=== PATIENT | female | born 1960 | race Caucasian/White ===

== ENCOUNTER 2017-12-20 07:34 | Outpatient (CLI) | payer OTHER ==
[2017-12-20 08:46] LABS: HEMOGLOBIN A1C 10.1 % (4.5-6.2)
[2017-12-20 08:55] LABS: ALANINE AMINOTRANSFERASE 34 U/L (12-78); ALBUMIN 3.9 G/DL (3.4-5.0); ALKALINE PHOSPHATASE 144 IU/L (46-116); ANION GAP 14 (8-16); ASPARTATE AMINO TRANSFERASE 14 U/L (10-37); BILIRUBIN,TOTAL 0.3 MG/DL (0.1-1.0); BLOOD UREA NITROGEN 19 MG/DL (7-18); BUN/CREATININE RATIO 25.3 (6.6-38.0); CALCIUM 9.3 MG/DL (8.5-10.1); CHLORIDE 104 MMOL/L (99-107); CREATININE 0.75 MG/DL (0.40-0.90); GLUCOSE 289 MG/DL (70-104); POTASSIUM 4.2 MMOL/L (3.5-5.1); SODIUM 142 MMOL/L (135-145); TOTAL CARBON DIOXIDE 24.5 MMOL/L (24-32); eGFR 80 ML/MIN
== END 2017-12-20 23:59 | disposition home or self-care (01) ==
LOC: LAB 07:34
PROVIDERS: ATTEND Nurse Practitioner Family
DX: E11.65 Type 2 diabetes mellitus with hyperglycemia (principal); I10 Essential (primary) hypertension; E78.4 Other hyperlipidemia
CPT/HCPCS: 36415; 80053; 83036

== ENCOUNTER 2018-06-13 07:54 | Outpatient (CLI) | payer OTHER ==
[2018-06-13 08:34] LABS: HEMOGLOBIN A1C 10.5 % (4.5-6.2)
[2018-06-13 08:35] LABS: ALANINE AMINOTRANSFERASE 27 U/L (12-78); ALBUMIN 3.9 G/DL (3.4-5.0); ALBUMIN/GLOBULIN RATIO 1.1 (1.1-1.5); ALKALINE PHOSPHATASE 114 IU/L (46-116); ANION GAP 7 (8-16); ASPARTATE AMINO TRANSFERASE 12 U/L (10-37); BILIRUBIN,TOTAL 0.4 MG/DL (0.1-1.0); BLOOD UREA NITROGEN 14 MG/DL (7-18); BUN/CREATININE RATIO 18.7 (6.6-38.0); CALCIUM 8.7 MG/DL (8.5-10.1); CHLORIDE 103 MMOL/L (99-107); CHOL/HDL RATIO 3.4 (0.00-4.99); CHOLESTEROL 189 MG/DL (0-200); CREATININE 0.75 MG/DL (0.40-0.90); GLUCOSE 233 MG/DL (70-104); HDL CHOLESTEROL 55 MG/DL (35-60); LDL CHOLESTEROL 107 MG/DL (50-100); POTASSIUM 4.1 MMOL/L (3.5-5.1); SODIUM 139 MMOL/L (135-145); TOTAL CARBON DIOXIDE 29.1 MMOL/L (24-32); TOTAL PROTEIN 7.5 G/DL (6.4-8.2); TRIGLYCERIDES 202 MG/DL (20-135); eGFR 79 ML/MIN
== END 2018-06-13 23:59 | disposition home or self-care (01) ==
LOC: LAB 07:54
PROVIDERS: ATTEND Nurse Practitioner Family
DX: E11.9 Type 2 diabetes mellitus without complications (principal); E78.5 Hyperlipidemia, unspecified; F41.8 Other specified anxiety disorders
CPT/HCPCS: 36415; 80053; 80061; 82043; 82570; 83036

== ENCOUNTER 2018-10-09 08:39 | Outpatient (CLI) | payer OTHER ==
[2018-10-09 09:48] LABS: HEMOGLOBIN A1C 8.4 % (4.5-6.2)
[2018-10-09 10:00] LABS: ALANINE AMINOTRANSFERASE 46 U/L (12-78); ALBUMIN 3.9 G/DL (3.4-5.0); ALKALINE PHOSPHATASE 145 IU/L (46-116); ANION GAP 12 (8-16); ASPARTATE AMINO TRANSFERASE 20 U/L (10-37); BILIRUBIN,TOTAL 0.4 MG/DL (0.1-1.0); BLOOD UREA NITROGEN 19 MG/DL (7-18); BUN/CREATININE RATIO 30.2 (6.6-38.0); CALCIUM 8.9 MG/DL (8.5-10.1); CHLORIDE 102 MMOL/L (99-107); CHOL/HDL RATIO 2.9 (0.00-4.99); CHOLESTEROL 158 MG/DL (0-200); CREATININE 0.63 MG/DL (0.40-0.90); GLUCOSE 204 MG/DL (70-104); HDL CHOLESTEROL 54 MG/DL (35-60); LDL CHOLESTEROL 88 MG/DL (50-100); SODIUM 140 MMOL/L (135-145); TOTAL CARBON DIOXIDE 25.7 MMOL/L (24-32); TOTAL PROTEIN 7.9 G/DL (6.4-8.2); TRIGLYCERIDES 91 MG/DL (20-135); eGFR > 90 ML/MIN
[2018-10-10 14:05] LABS: C-PEPTIDE, SERUM 2.6 ng/mL (1.1-4.4); INSULIN 11.1 uIU/mL (2.6-24.9)
== END 2018-10-09 23:59 | disposition home or self-care (01) ==
LOC: LAB 08:39
PROVIDERS: ATTEND Nurse Practitioner Family
DX: E11.65 Type 2 diabetes mellitus with hyperglycemia (principal); I10 Essential (primary) hypertension; E78.00 Pure hypercholesterolemia, unspecified
CPT/HCPCS: 36415; 80053; 80061; 83036; 83525; 84443; 84681

== ENCOUNTER 2018-12-18 09:19 | Outpatient (CLI) | payer OTHER ==
[2018-12-18 10:15] LABS: HEMOGLOBIN A1C 9.5 % (4.5-6.2)
[2018-12-19 09:07] LABS: THIIODOTHRONINE, FREE, SERUM 2.1 pg/mL (2.0-4.4); THYROID PEROXIDASE AB 15 IU/mL (0-34)
== END 2018-12-18 23:59 | disposition home or self-care (01) ==
LOC: LAB 09:19
PROVIDERS: ATTEND Nurse Practitioner Family
DX: E11.65 Type 2 diabetes mellitus with hyperglycemia (principal); E03.9 Hypothyroidism, unspecified
CPT/HCPCS: 36415; 83036; 84439; 84443; 84479; 84481; 86376

== ENCOUNTER 2019-09-30 09:18 | Emergency (ER) | payer OTHER ==
[~2019-09-30] VITALS: Ht 154.9 cm; Wt 66.4 kg
[2019-09-30 09:29] VITALS: BP 117/88
[2019-09-30] MEDS ORDERED: AMOX-580 PO (09:55)
[2019-09-30] MEDS ORDERED: IBUP-1984 PO (09:55)
== END 2019-09-30 10:06 | disposition home or self-care (01) ==
LOC: ER 09:19
DX: J32.9 Chronic sinusitis, unspecified (principal); H66.91 Otitis media, unspecified, right ear; Z79.899 Other long term (current) drug therapy
CPT/HCPCS: 99283

== ENCOUNTER 2019-10-22 08:52 | Outpatient (CLI) | payer OTHER ==
[2019-10-22 09:28] LABS: BASOPHILS # (AUTO) 0.1 X10'3 (0-0.2); EOSINOPHILS # (AUTO) 0.2 X10'3 (0-0.9); EOSINOPHILS % (AUTO) 4.2 % (0-6); HEMATOCRIT 41.3 % (35.0-45.0); LYMPHOCYTES # (AUTO) 1.6 X10'3 (1.1-4.8); MEAN CORPUSCULAR HEMOGLOBIN 31.7 PG (27.0-31.0); MEAN CORPUSCULAR VOLUME 93.2 FL (78-98); MEAN PLATELET VOLUME 8.6 FL (7.4-10.4); MONOCYTES # (AUTO) 0.4 X10'3 (0-0.9); MONOCYTES % (AUTO) 7.2 % (2-12); NEUTROPHILS # (AUTO) 3.3 X10'3 (1.8-7.7); NEUTROPHILS % (AUTO) 59.6 % (42-75); PLATELET COUNT 185 X10'3 (140-440); RED BLOOD COUNT 4.43 X10'6 (4.20-5.60); RED CELL DISTRIBUTION WIDTH 13.3 % (11.5-14.5); WHITE BLOOD COUNT 5.5 X10'3 (4.5-11.0)
[2019-10-22 10:51] LABS: ALANINE AMINOTRANSFERASE 33 U/L (12-78); ALBUMIN 3.8 G/DL (3.4-5.0); ALBUMIN/GLOBULIN RATIO 1.1 (1.1-1.5); ALKALINE PHOSPHATASE 120 IU/L (46-116); ANION GAP 8 (8-16); ASPARTATE AMINO TRANSFERASE 13 U/L (10-37); BILIRUBIN,TOTAL 0.4 MG/DL (0.1-1.0); BLOOD UREA NITROGEN 18 MG/DL (7-18); BUN/CREATININE RATIO 26.5 (6.6-38.0); CALCIUM 8.7 MG/DL (8.5-10.1); CHLORIDE 105 MMOL/L (99-107); CHOL/HDL RATIO 4.1 (0.00-4.99); CHOLESTEROL 202 MG/DL (0-200); CREATININE 0.68 MG/DL (0.40-0.90); GLUCOSE 255 MG/DL (70-104); HDL CHOLESTEROL 49 MG/DL (35-60); LDL CHOLESTEROL 125 MG/DL (50-100); POTASSIUM 4.4 MMOL/L (3.5-5.1); SODIUM 141 MMOL/L (135-145); TOTAL CARBON DIOXIDE 28.4 MMOL/L (24-32); TOTAL PROTEIN 7.4 G/DL (6.4-8.2); TRIGLYCERIDES 132 MG/DL (20-135); eGFR 89 ML/MIN
[2019-10-24 13:29] LABS: MICROALB/CRT, RATIO <8 mg/g creat (0-29)
== END 2019-10-22 23:59 | disposition home or self-care (01) ==
LOC: LAB 08:52
PROVIDERS: ATTEND Nurse Practitioner Family
DX: E11.9 Type 2 diabetes mellitus without complications (principal); E03.9 Hypothyroidism, unspecified; E78.5 Hyperlipidemia, unspecified
CPT/HCPCS: 36415; 80053; 80061; 82043; 82570; 84443; 85025

== ENCOUNTER 2021-03-18 17:35 | Inpatient (IN) | payer BC, OTHER ==
[~2021-03-18] VITALS: Ht 154.9 cm; Wt 63.1 kg
[2021-03-18 19:04] LABS: ALANINE AMINOTRANSFERASE 23 U/L (12-78); ALBUMIN 3.8 G/DL (3.4-5.0); ALBUMIN/GLOBULIN RATIO 0.8 (1.1-1.5); ALKALINE PHOSPHATASE 120 IU/L (46-116); ANION GAP 28 (8-16); ASPARTATE AMINO TRANSFERASE 12 U/L (10-37); BILIRUBIN,TOTAL 0.6 MG/DL (0.1-1.0); BLOOD UREA NITROGEN 30 MG/DL (7-18); BUN/CREATININE RATIO 17.5 (6.6-38.0); CALCIUM 8.7 MG/DL (8.5-10.1); CHLORIDE 92 MMOL/L (99-107); CREATININE 1.71 MG/DL (0.40-0.90); POTASSIUM 4.9 MMOL/L (3.5-5.1); SODIUM 131 MMOL/L (135-145); TOTAL PROTEIN 8.6 G/DL (6.4-8.2); eGFR 30 ML/MIN
[2021-03-18 19:05] LABS: BASOPHILS % (AUTO) 0.3 % (0-1); EOSINOPHILS % (AUTO) 0.1 % (0-6); HEMATOCRIT 47.9 % (35.0-45.0); HEMOGLOBIN 15.5 g/dl (12.0-16.0); LYMPHOCYTES # (AUTO) 1.4 X10'3 (1.1-4.8); LYMPHOCYTES % (AUTO) 19.9 % (21-51); MEAN CORPUSCULAR HEMOGLOBIN 32.4 PG (27.0-31.0); MEAN CORPUSCULAR HGB CONC 32.4 g/dL (33.0-36.5); MEAN CORPUSCULAR VOLUME 99.8 FL (78-98); MEAN PLATELET VOLUME 8.2 FL (7.4-10.4); MONOCYTES # (AUTO) 0.6 X10'3 (0-0.9); MONOCYTES % (AUTO) 8.8 % (2-12); NEUTROPHILS # (AUTO) 5.1 X10'3 (1.8-7.7); NEUTROPHILS % (AUTO) 70.9 % (42-75); PLATELET COUNT 259 X10'3 (140-440); RED CELL DISTRIBUTION WIDTH 13.6 % (11.5-14.5); WHITE BLOOD COUNT 7.1 X10'3 (4.5-11.0)
[2021-03-18 19:11] LABS: GLUCOSE 603 MG/DL (70-104); TOTAL CARBON DIOXIDE 10.8 MMOL/L (24-32)
[2021-03-18] MEDS ORDERED: normal saline 1000ml 1,000 ML IV ONE (19:20)
[2021-03-18] MEDS ORDERED: potassium Cl 40MEQ/1/2NS 520ml 520 ML IV PRN ×6 (19:30→20:30)
[2021-03-18] MEDS ORDERED: potassium Cl 20 mEq SR tablet PO PRN ×5 (19:30→20:30)
[2021-03-18] MEDS ORDERED: potassium CL 20mEq in D5-1/2NS 1,000 ML IV PRN ×2 (19:30→20:30)
[2021-03-18] MEDS ORDERED: insulin regular, human U-100 3ml vial - multi-dose IV PRN ×2 (19:30→20:30)
[2021-03-18] MEDS ORDERED: normal saline 1000ml 1,000 ML IV SCH (19:30)
[2021-03-18] MEDS ORDERED: sodium phosphate inj. 30 MMOL in dextrose 5%-water 250 ML IV PRN (19:30)
[2021-03-18] MEDS ORDERED: sodium phosphate inj. 15 MMOL in dextrose 5%-water 250 ML IV PRN (19:30)
[2021-03-18] MEDS ORDERED: Neutra Phos packet PO PRN (19:30)
[2021-03-18 19:49] LABS: PHOSPHORUS 4.1 MG/DL (2.3-4.5)
[2021-03-18 19:59] LABS: ABG BASE EXCESS -19.8 mmol/L (-2.0-2.0); ABG HCO3 6.4 mmol/L (22.0-26.0); ABG OXYGEN SATURATION 97.4 % (94-97); ABG PCO2 (T) 17.6 mmHg (32.0-45.0); ABG PO2 (T) 103.9 mmHg (75.0-100.0); ALLEN'S TEST POSITIVE; FCOHb 0.4 % (0.0-3.9); FMetHb 0.4 % (0.0-1.5); FO2Hb 96.6 % (94-97); PATIENT TEMPERATURE 36.5; RESPIRATORY RATE 16 b/min; TOTAL HEMOGLOBIN 15.2 G/dl (12.0-16.0)
[2021-03-18] MEDS: K and/or MAG REPLACEMENT MC SCH (20:00)
[2021-03-18] MEDS: Insulin Reg/NS 100units/100mL 100 ML IV SCH (20:06)
[2021-03-18 20:14] LABS: CLARITY,URINE SLIGHTLY CLOUDY (Clear); COLOR,URINE YELLOW (Yellow); GLUCOSE, URINE 500 mg/dl (Neg); KETONES,URINE >=80 mg/dl (Neg); LEUKOCYTE ESTERASE ,URINE NEGATIVE (Neg); NITRITES, URINE NEGATIVE (Neg); OCCULT BLOOD,URINE NEGATIVE (Neg); PH,URINE 5.5 (4.8-8.0); PROTEIN,URINE TRACE mg/dl (Neg); UROBILINOGEN,URINE 0.2 E.U/dL (0.2-1.0)
[2021-03-18] MEDS ORDERED: ondansetron/PF 4mg/2ml inj IV ONE (20:15)
[2021-03-18] MEDS ORDERED: acetaminophen 325mg tablet PO ONE (20:15)
[2021-03-18 20:22] LABS: UA COLLECTION TYPE CLN CATCH MIDSTREAM
[2021-03-18 20:24] LABS: BACTERIA,URINE NONE SEEN /HPF (Neg); MUCUS STRANDS NONE SEEN /LPF (Neg); RBC,URINE NONE SEEN /HPF (0-2); SQUAMOUS EPITHELIAL CELL,UR FEW /LPF (FEW); WBC,URINE 0-4 /HPF (0-4)
[2021-03-18 20:25] LABS: YEAST MANY /HPF (NEGATIVE)
[2021-03-18] MEDS ORDERED: Insulin Reg/NS 100units/100mL 100 ML IV SCH (20:30)
[2021-03-18] MEDS: normal saline 1000ml 1,000 ML IV SCH ×3 (20:30→22:04)
[2021-03-18] MEDS ORDERED: acetaminophen 325mg tablet PO PRN ×2 (20:30)
[2021-03-18] MEDS ORDERED: sodium bicarbonate (8.4%) inj. 100 MEQ in dextrose 5% water 500ml 500 ML IV PRN (20:30)
[2021-03-18] MEDS ORDERED: ondansetron/PF 4mg/2ml inj IV PRN (20:30)
[2021-03-18] MEDS ORDERED: HYDROcodone/acetaminophen 5mg/325mg tablet PO PRN (20:30)
[2021-03-18] MEDS ORDERED: magnesium Cl slow-release 64mg tablet PO PRN (20:30)
[2021-03-18] MEDS ORDERED: magnesium 4gm in 100ml NS 100 ML IV PRN (20:30)
[2021-03-18] MEDS ORDERED: sodium bicarbonate (8.4%) inj. 50 MEQ in dextrose 5% water 500ml 250 ML IV PRN (20:30)
[2021-03-18] MEDS ORDERED: mag hydrox/Alum hydrox/simeth 30ml oral suspension PO PRN (20:30)
[2021-03-18] MEDS ORDERED: magnesium hydroxide 30ml (MOM) UD suspension PO PRN (20:30)
[2021-03-18] MEDS ORDERED: magnesium 2GM in 50ml NS 50 ML IV PRN (20:30)
[2021-03-18] MEDS ORDERED: morphine 2 MG/ML inj. syringe IV PRN (20:30)
[2021-03-18] MEDS ORDERED: temazepam 15mg capsule PO PRN (21:00)
[2021-03-18 22:54] LABS: ANION GAP 22 (8-16); BLOOD UREA NITROGEN 27 MG/DL (7-18); BUN/CREATININE RATIO 19.7 (6.6-38.0); CALCIUM 7.7 MG/DL (8.5-10.1); CHLORIDE 101 MMOL/L (99-107); CREATININE 1.37 MG/DL (0.40-0.90); GLUCOSE 341 MG/DL (70-104); POTASSIUM 3.9 MMOL/L (3.5-5.1); SODIUM 136 MMOL/L (135-145); eGFR 39 ML/MIN
[2021-03-18 23:00] LABS: TOTAL CARBON DIOXIDE 13.3 MMOL/L (24-32)
--- NOTE | 2021-03-18 23:23 | NUR ---
Blood glucose 246 and K 3.9. D2 1/2NS 20K @150 ml/hr started
[2021-03-19] MEDS: normal saline 1000ml 1,000 ML IV SCH ×2 (00:30→04:30)
--- NOTE | 2021-03-19 00:42 | NUR ---
Pt has not produced urine since arriving at the ER. notified. No new orders.
--- NOTE | 2021-03-19 00:43 | NUR ---
Patient placed in hospital bed for comfort. Call light within reach
[2021-03-19 01:03] LABS: ALBUMIN 2.6 G/DL (3.4-5.0); ANION GAP 17 (8-16); BLOOD UREA NITROGEN 22 MG/DL (7-18); BUN/CREATININE RATIO 18.2 (6.6-38.0); CALCIUM 6.8 MG/DL (8.5-10.1); CHLORIDE 108 MMOL/L (99-107); CREATININE 1.21 MG/DL (0.40-0.90); GLUCOSE 222 MG/DL (70-104); POTASSIUM 3.5 MMOL/L (3.5-5.1); SODIUM 140 MMOL/L (135-145); TOTAL CARBON DIOXIDE 15.3 MMOL/L (24-32); eGFR 45 ML/MIN
[2021-03-19 01:07] LABS: PHOSPHORUS 1.1 MG/DL (2.3-4.5)
--- NOTE | 2021-03-19 01:13 | NUR ---
Pt Phos 1.1. MD notified. Replace Phos per protocol
[2021-03-19 03:40] LABS: ALBUMIN 2.5 G/DL (3.4-5.0); ANION GAP 13 (8-16); BLOOD UREA NITROGEN 18 MG/DL (7-18); BUN/CREATININE RATIO 15.5 (6.6-38.0); CHLORIDE 109 MMOL/L (99-107); CHOL/HDL RATIO 5.2 (0.00-4.99); CHOLESTEROL 228 MG/DL (0-200); CREATININE 1.16 MG/DL (0.40-0.90); GLUCOSE 126 MG/DL (70-104); HDL CHOLESTEROL 44 MG/DL (35-60); LDL CHOLESTEROL 142 MG/DL (50-100); MAGNESIUM 1.5 MG/DL (1.5-2.4); POTASSIUM 3.4 MMOL/L (3.5-5.1); SODIUM 141 MMOL/L (135-145); TRIGLYCERIDES 176 MG/DL (20-135); eGFR 47 ML/MIN
--- NOTE | 2021-03-19 04:02 | NUR ---
Patient phosphorous 1.0 after replacement x 1. paged
--- NOTE | 2021-03-19 05:08 | NUR ---
MD notified of pt phos levels, blood glucose and Dextrose rate. MD stated she will review patient labs, and to hold off feeding patient.
--- NOTE | 2021-03-19 05:20 | NUR ---
Pt continues to state that she does not have to urinate. Bladder scanner reads >755ml. Pt assisted to the bedside commode. 650 ml out
--- NOTE | 2021-03-19 05:21 | NUR ---
Insulin decreased from 10 units/hr to 5 units/hr. BG 88, w/ D5 1/2NS + 20K at 250 ml/hr.
[2021-03-19] MEDS ORDERED: ATOR40TA72 PO (05:58)
[2021-03-19] MEDS ORDERED: LEVO25TA7 PO (05:58)
[2021-03-19] MEDS ORDERED: GLIM4TAB7 PO (05:58)
[2021-03-19] MEDS ORDERED: METF-900 PO ×2 (05:58→05:59)
[2021-03-19] MEDS ORDERED: LOSA25TA41 PO (05:58)
[2021-03-19] MEDS ORDERED: FLUO-1 PO (05:58)
[2021-03-19] MEDS: dextrose 5%-1/2 normal saline 1,000 ML IV SCH ×2 (06:43→10:25)
--- NOTE | 2021-03-19 07:01 | NUR ---
pt insulin infusing at 5 units/hr ,switched d5 1/2 n.s with k+ to d5 with 1/[address] amaral at 200 ml/hr.
--- NOTE | 2021-03-19 07:36 | NUR ---
paged dr perez 10 mins ago by greta galvan .will wait few mins and page again.
[2021-03-19 07:42] LABS: ALANINE AMINOTRANSFERASE 20 U/L (12-78); ALBUMIN 2.6 G/DL (3.4-5.0); ALBUMIN/GLOBULIN RATIO 0.8 (1.1-1.5); ALKALINE PHOSPHATASE 72 IU/L (46-116); ANION GAP 10 (8-16); ASPARTATE AMINO TRANSFERASE 10 U/L (10-37); BILIRUBIN,TOTAL 0.2 MG/DL (0.1-1.0); BLOOD UREA NITROGEN 15 MG/DL (7-18); BUN/CREATININE RATIO 12.5 (6.6-38.0); CALCIUM 6.9 MG/DL (8.5-10.1); CHLORIDE 109 MMOL/L (99-107); GLUCOSE 109 MG/DL (70-104); POTASSIUM 3.4 MMOL/L (3.5-5.1); SODIUM 141 MMOL/L (135-145); TOTAL CARBON DIOXIDE 21.6 MMOL/L (24-32); TOTAL PROTEIN 5.9 G/DL (6.4-8.2); eGFR 46 ML/MIN
[2021-03-19 07:45] LABS: PHOSPHORUS 1.4 MG/DL (2.3-4.5)
[2021-03-19] MEDS ORDERED: dextrose ORAL solution 15 GM/59 ML bottle PO PRN ×2 (07:45)
[2021-03-19] MEDS ORDERED: MESSAGE TO PHARMACY PO ONE (07:45)
[2021-03-19] MEDS ORDERED: glucagon, human recombinant 1mg kit SUBCUT PRN (07:45)
[2021-03-19] MEDS ORDERED: dextrose 50%-water 50ml dispensing syringe IV PRN ×2 (07:45)
--- NOTE | 2021-03-19 07:45 | NUR ---
spoke to dr perez regarding pt labs ,phosph,blood sugar ,as per md follow hyperglycemia protocol d/c insulin infusion onces pt start eating 1 hour after that ,replace phosphorus .order carb control diet for the pt.
[2021-03-19 07:47] LABS: ABG BASE EXCESS -6.1 mmol/L (-2.0-2.0); ABG HCO3 17.9 mmol/L (22.0-26.0); ABG OXYGEN SATURATION 96.8 % (94-97); ABG PCO2 (T) 30.6 mmHg (32.0-45.0); ABG PO2 (T) 88.9 mmHg (75.0-100.0); ALLEN'S TEST POSITIVE; FCOHb 0.1 % (0.0-3.9); FMetHb 0.1 % (0.0-1.5); FO2Hb 96.6 % (94-97); TOTAL HEMOGLOBIN 11.9 G/dl (12.0-16.0)
[2021-03-19] MEDS: K and/or MAG REPLACEMENT MC SCH ×3 (08:00→20:57)
[2021-03-19] MEDS ORDERED: K and/or MAG REPLACEMENT MC SCH (08:00)
[2021-03-19] MEDS: atorvastatin 20mg tablet PO SCH (08:23)
[2021-03-19] MEDS: levoTHYROXINE 25mcg tablet PO SCH (08:23)
[2021-03-19] MEDS: Neutra Phos packet PO SCH ×3 (08:24→20:06)
[2021-03-19] MEDS: heparin, porcine 5000 units/ml vial SQ SCH ×2 (08:24→19:21)
[2021-03-19] MEDS: FLUoxetine 20mg capsule PO SCH (08:24)
[2021-03-19] MEDS: losartan 25mg tablet PO SCH (09:04)
[2021-03-19] MEDS: insulin Lispro (HumaLOG) vial - multi-dose SQ SCH ×3 (09:52→21:22)
[2021-03-19] MEDS: Insulin Reg/NS 100units/100mL 100 ML IV SCH (10:07)
--- NOTE | 2021-03-19 12:48 | NUR ---
dr perez at bedside order for kcl 20 with 1/2 n.s for k+3.4 .dka protocol cancelled earlier after pt started eating .
--- NOTE | 2021-03-19 13:12 | NUR ---
Patient in room ED 1. I have received report from DALIA Ferreira and had the opportunity to ask questions and awaiting pt's arrival from ED.
[2021-03-19] MEDS: potassium cl 20mEq in 1/2 NS 1,000 ML IV SCH (13:31)
[2021-03-19] MEDS: potassium Cl 20 mEq SR tablet PO PRN ×3 (13:32→21:54)
--- NOTE | 2021-03-19 14:18 | NUR ---
Patient arrived from ED on hospital bed. Alert and oriented x4, BLL, CL within reach, non skid socks on, will continue to round frequently and monitor. 2 RN skin check complete, MRSA swab collected. First set of vitals complete.
[2021-03-19 18:00] VITALS: BP 118/73
--- NOTE | 2021-03-19 18:15 | NUR ---
Patient in room PCU 3019. I have received report from Galina GÓMEZ & Junaid GÓMEZ and had the opportunity to ask questions and assume patient care.
--- NOTE | 2021-03-19 18:23 | NUR ---
Problems reprioritized. Patient report given, questions answered & plan of care reviewed with Jessika GÓMEZ.
--- NOTE | 2021-03-19 18:28 | NUR ---
Problems reprioritized. Patient report given, questions answered & plan of care reviewed with DALIA Freeman/DALIA Lee. Pt sitting up eating dinner independently. No signs of distress noted at change of shift.
[2021-03-19] MEDS ORDERED: ondansetron 4mg rapidly disintigrating tab PO PRN (19:35)
[2021-03-19] MEDS ORDERED: fluconazole-Diflucan 200mg/NS 100 ML IV SCH (20:00)
[2021-03-19] MEDS ORDERED: insulin glargine (Lantus) pen - multi-dose SQ SCH (21:00)
[2021-03-19 22:00] VITALS: BP 114/56
[2021-03-20] MEDS: potassium cl 20mEq in 1/2 NS 1,000 ML IV SCH ×2 (01:27→09:23)
[2021-03-20 02:00] VITALS: BP 112/59
--- NOTE | 2021-03-20 05:11 | NUR ---
[place] documentation: I have reviewed and agree with all interventions, assessments performed and documented by Rosa GÓMEZ. [place] Medication Administration: For this medication-pass time frame, all medication were reviewed, dispensed, administered and documented per hospital policy by Rosa GÓMEZ.
[2021-03-20 06:00] VITALS: BP 132/81
--- NOTE | 2021-03-20 06:10 | NUR ---
Problems reprioritized. Patient report given, questions answered & plan of care reviewed with Galina GÓMEZ & Junaid RN.
--- NOTE | 2021-03-20 06:28 | NUR ---
Patient in room PCU 3019. I have received report from Jessika GÓMEZ and had the opportunity to ask questions and assume patient care.
--- NOTE | 2021-03-20 06:31 | NUR ---
Patient in room PCU 3019. I have received report from Meena RN/Rosa RN and had the opportunity to ask questions and assume patient care.
[2021-03-20 06:55] LABS: MAGNESIUM 1.8 MG/DL (1.5-2.4)
[2021-03-20] MEDS: FLUoxetine 20mg capsule PO SCH (07:51)
[2021-03-20] MEDS: levoTHYROXINE 25mcg tablet PO SCH (07:51)
[2021-03-20] MEDS: atorvastatin 20mg tablet PO SCH (07:51)
[2021-03-20] MEDS: losartan 25mg tablet PO SCH (07:51)
[2021-03-20] MEDS: heparin, porcine 5000 units/ml vial SQ SCH (07:52)
[2021-03-20] MEDS: K and/or MAG REPLACEMENT MC SCH (08:00)
[2021-03-20 09:04] LABS: BASOPHILS % (AUTO) 0.7 % (0-1); HEMOGLOBIN 12.1 g/dl (12.0-16.0); LYMPHOCYTES # (AUTO) 1.8 X10'3 (1.1-4.8); LYMPHOCYTES % (AUTO) 41.1 % (21-51); MEAN CORPUSCULAR HEMOGLOBIN 32.6 PG (27.0-31.0); MEAN CORPUSCULAR HGB CONC 34.5 g/dL (33.0-36.5); MEAN CORPUSCULAR VOLUME 94.5 FL (78-98); MEAN PLATELET VOLUME 8.5 FL (7.4-10.4); MONOCYTES # (AUTO) 0.5 X10'3 (0-0.9); MONOCYTES % (AUTO) 12.7 % (2-12); NEUTROPHILS # (AUTO) 1.9 X10'3 (1.8-7.7); NEUTROPHILS % (AUTO) 44.5 % (42-75); PLATELET COUNT 142 X10'3 (140-440); RED BLOOD COUNT 3.71 X10'6 (4.20-5.60); WHITE BLOOD COUNT 4.3 X10'3 (4.5-11.0)
[2021-03-20 09:12] LABS: ALANINE AMINOTRANSFERASE 17 U/L (12-78); ALBUMIN 2.5 G/DL (3.4-5.0); ALBUMIN/GLOBULIN RATIO 0.8 (1.1-1.5); ALKALINE PHOSPHATASE 81 IU/L (46-116); ANION GAP 13 (8-16); ASPARTATE AMINO TRANSFERASE 22 U/L (10-37); BILIRUBIN,TOTAL 0.5 MG/DL (0.1-1.0); BLOOD UREA NITROGEN 7 MG/DL (7-18); BUN/CREATININE RATIO 9.2 (6.6-38.0); CALCIUM 7.5 MG/DL (8.5-10.1); CHLORIDE 105 MMOL/L (99-107); CREATININE 0.76 MG/DL (0.40-0.90); GLUCOSE 312 MG/DL (70-104); POTASSIUM 4.3 MMOL/L (3.5-5.1); SODIUM 140 MMOL/L (135-145); TOTAL CARBON DIOXIDE 22.1 MMOL/L (24-32); TOTAL PROTEIN 5.6 G/DL (6.4-8.2); eGFR 77 ML/MIN
[2021-03-20] MEDS: Neutra Phos packet PO SCH ×2 (09:19→13:18)
[2021-03-20] MEDS: insulin Lispro (HumaLOG) vial - multi-dose SQ SCH ×2 (09:22→13:26)
[2021-03-20 10:24] LABS: PHOSPHORUS 1.9 MG/DL (2.3-4.5)
[2021-03-20] MEDS ORDERED: INSU100C10 SQ (10:46)
[2021-03-20] MEDS ORDERED: LANTUS SQ (10:46)
[2021-03-20] MEDS ORDERED: FLUC100T8 PO (10:53)
[2021-03-20 11:00] VITALS: BP 112/69
--- NOTE | 2021-03-20 12:49 | NUR ---
Malnutrition/DM Consults: Pt admit DX DKA now resolved; A1C over 14 and hx T2DM per EMR. GLU down to 312 from 603 on admit. Per RN pt pending discharge at this time requesting RD visit for DM ed. Pt seen by RD for thorough written/verbal DM ed w/ RD contact information provided. RD reviewed importance of hydration, protein intake, types of carbs, carb portion sizing, sick day guidelines, and snack options/strategies. Pt reports prior A1C 9 in [address] encouraged pt to contact dietitian's office if further questions/concerns. Pt appears WD/WN during RD visit PO 75% avg first meals meeting needs, has normal strength, and no significant edema noted. Does not meet minimum malnutrition criteria at this time. Will continue to monitor. Addendum: 03/20/21 at [address] Amended: Links added.
--- NOTE | 2021-03-20 13:30 | NUR ---
[place] documentation: I have reviewed and agree with all interventions, assessments performed and documented by DALIA Molina.
--- NOTE | 2021-03-20 13:30 | NUR ---
[place] Medication Administration: For this medication-pass time frame, all medication were reviewed, dispensed, administered and documented per hospital policy by DALIA Molina.
[2021-03-20] MEDS ORDERED: ASPI-611 PO (13:34)
[2021-03-20] MEDS ORDERED: NEUPHOSK PO (13:34)
[2021-03-20] MEDS ORDERED: CALC-723 PO (13:34)
--- NOTE | 2021-03-20 13:45 | NUR ---
Patient is stable for discharge per MD orders. All discharge instructions reviewed with patient and all questions answered. Follow up appointment made with Shari Flores N.P. on March 27 at 2:45pm. New Rx's were sent to [facility] on [facility]. PIV discontinued, cannula intact. ekg monitor tech discontinued. Belongings collected from room and security officers and sent with patient. Patient walked to front of lobby where private vehicle is waiting.
== END 2021-03-20 13:45 | disposition home or self-care (01) | DRG 637 ==
LOC: ER 17:37 → ED HOLD 20:29 → PCU 3S 03-19 14:21
PROVIDERS: ADMIT Internal Medicine; ATTEND Family Medicine
DX: E11.10 Type 2 diabetes mellitus with ketoacidosis without coma (principal); N17.0 Acute kidney failure with tubular necrosis; B37.49 Other urogenital candidiasis; E87.1 Hypo-osmolality and hyponatremia; E78.5 Hyperlipidemia, unspecified; F32.9 Major depressive disorder, single episode, unspecified; Z66 Do not resuscitate; Z79.84 Long term (current) use of oral hypoglycemic drugs; Z79.890 Hormone replacement therapy; Z79.899 Other long term (current) drug therapy
CPT/HCPCS: 36415; 36600; 70450; 71045; 80048; 80053; 80061; 81001; 82803; 82948; 83036; 83735; 83880; 84100; 84145; 84443; 84484; 85018; 85025; 87081; 87088; 99285; G0378; J1450; J1644; J1815; J2405; J3480; J7030

== ENCOUNTER 2021-04-01 07:57 | Outpatient (CLI) | payer BC ==
[~2021-04-01 07:57] MED LIST: ASPI-611 PO; ATOR40TA72 PO; CALC-723 PO; FLUC100T8 PO; FLUO-1 PO; INSU100C10 SQ; LANTUS SQ; LEVO25TA7 PO; LOSA25TA41 PO; METF-900 PO; NEUPHOSK PO
[2021-04-01 08:34] LABS: BASOPHILS # (AUTO) 0.1 X10'3 (0-0.2); BASOPHILS % (AUTO) 1.1 % (0-1); EOSINOPHILS # (AUTO) 0.1 X10'3 (0-0.9); EOSINOPHILS % (AUTO) 3.1 % (0-6); HEMATOCRIT 40.8 % (35.0-45.0); HEMOGLOBIN 13.6 g/dl (12.0-16.0); LYMPHOCYTES # (AUTO) 2.1 X10'3 (1.1-4.8); LYMPHOCYTES % (AUTO) 48.4 % (21-51); MEAN CORPUSCULAR HEMOGLOBIN 32.1 PG (27.0-31.0); MEAN CORPUSCULAR HGB CONC 33.2 g/dL (33.0-36.5); MEAN CORPUSCULAR VOLUME 96.7 FL (78-98); MEAN PLATELET VOLUME 7.8 FL (7.4-10.4); MONOCYTES # (AUTO) 0.4 X10'3 (0-0.9); MONOCYTES % (AUTO) 8.7 % (2-12); NEUTROPHILS # (AUTO) 1.7 X10'3 (1.8-7.7); NEUTROPHILS % (AUTO) 38.7 % (42-75); PLATELET COUNT 271 X10'3 (140-440); RED BLOOD COUNT 4.22 X10'6 (4.20-5.60); RED CELL DISTRIBUTION WIDTH 13.3 % (11.5-14.5); WHITE BLOOD COUNT 4.4 X10'3 (4.5-11.0)
[2021-04-01 08:45] LABS: ALANINE AMINOTRANSFERASE 24 U/L (12-78); ALBUMIN 3.4 G/DL (3.4-5.0); ALBUMIN/GLOBULIN RATIO 0.9 (1.1-1.5); ALKALINE PHOSPHATASE 113 IU/L (46-116); ANION GAP 8 (8-16); ASPARTATE AMINO TRANSFERASE 14 U/L (10-37); BILIRUBIN,TOTAL 0.2 MG/DL (0.1-1.0); BLOOD UREA NITROGEN 22 MG/DL (7-18); BUN/CREATININE RATIO 33.3 (6.6-38.0); CALCIUM 8.6 MG/DL (8.5-10.1); CHLORIDE 103 MMOL/L (99-107); CHOL/HDL RATIO 5.7 (0.00-4.99); CHOLESTEROL 250 MG/DL (0-200); CREATININE 0.66 MG/DL (0.40-0.90); GLUCOSE 251 MG/DL (70-104); HDL CHOLESTEROL 44 MG/DL (35-60); LDL CHOLESTEROL 143 MG/DL (50-100); POTASSIUM 4.5 MMOL/L (3.5-5.1); SODIUM 139 MMOL/L (135-145); TOTAL CARBON DIOXIDE 27.8 MMOL/L (24-32); TOTAL PROTEIN 7.4 G/DL (6.4-8.2); TRIGLYCERIDES 267 MG/DL (20-135); eGFR > 90 ML/MIN
[2021-04-04 11:31] LABS: C-PEPTIDE, SERUM 1.3 ng/mL (1.1-4.4); MICROALB/CRT, RATIO <9 mg/g creat (0-29)
== END 2021-04-01 23:59 | disposition home or self-care (01) ==
LOC: LAB 07:57
PROVIDERS: ATTEND Family Medicine
DX: E11.9 Type 2 diabetes mellitus without complications (principal); E78.5 Hyperlipidemia, unspecified
CPT/HCPCS: 36415; 80053; 80061; 82043; 82570; 84681; 85025

== ENCOUNTER 2021-06-30 08:27 | Outpatient (CLI) | payer BC ==
[~2021-06-30 08:27] MED LIST changes: -ASPI-611 PO; -LANTUS SQ
[2021-06-30 09:10] LABS: EOSINOPHILS # (AUTO) 0.3 X10'3 (0-0.9); EOSINOPHILS % (AUTO) 6.1 % (0-6); HEMATOCRIT 38.1 % (35.0-45.0); HEMOGLOBIN 12.8 g/dl (12.0-16.0); LYMPHOCYTES # (AUTO) 1.7 X10'3 (1.1-4.8); LYMPHOCYTES % (AUTO) 38.3 % (21-51); MEAN CORPUSCULAR HEMOGLOBIN 31.6 PG (27.0-31.0); MEAN CORPUSCULAR HGB CONC 33.5 g/dL (33.0-36.5); MEAN CORPUSCULAR VOLUME 94.1 FL (78-98); MEAN PLATELET VOLUME 7.5 FL (7.4-10.4); MONOCYTES # (AUTO) 0.4 X10'3 (0-0.9); MONOCYTES % (AUTO) 9.9 % (2-12); NEUTROPHILS # (AUTO) 1.9 X10'3 (1.8-7.7); NEUTROPHILS % (AUTO) 44.7 % (42-75); PLATELET COUNT 244 X10'3 (140-440); RED BLOOD COUNT 4.04 X10'6 (4.20-5.60); RED CELL DISTRIBUTION WIDTH 12.5 % (11.5-14.5); WHITE BLOOD COUNT 4.3 X10'3 (4.5-11.0)
[2021-06-30 09:28] LABS: HEMOGLOBIN A1C 7.7 % (4.5-6.2)
[2021-06-30 09:36] LABS: ALANINE AMINOTRANSFERASE 19 U/L (12-78); ALBUMIN 3.6 G/DL (3.4-5.0); ALBUMIN/GLOBULIN RATIO 0.9 (1.1-1.5); ALKALINE PHOSPHATASE 100 IU/L (46-116); ANION GAP 9 (8-16); ASPARTATE AMINO TRANSFERASE 13 U/L (10-37); BILIRUBIN,TOTAL 0.4 MG/DL (0.1-1.0); BLOOD UREA NITROGEN 13 MG/DL (7-18); BUN/CREATININE RATIO 17.6 (6.6-38.0); CALCIUM 8.4 MG/DL (8.5-10.1); CHLORIDE 105 MMOL/L (99-107); CHOL/HDL RATIO 4.3 (0.00-4.99); CHOLESTEROL 201 MG/DL (0-200); CREATININE 0.74 MG/DL (0.40-0.90); GLUCOSE 104 MG/DL (70-104); HDL CHOLESTEROL 47 MG/DL (35-60); LDL CHOLESTEROL 117 MG/DL (50-100); POTASSIUM 3.7 MMOL/L (3.5-5.1); SODIUM 143 MMOL/L (135-145); TOTAL CARBON DIOXIDE 29.4 MMOL/L (24-32); TOTAL PROTEIN 7.5 G/DL (6.4-8.2); TRIGLYCERIDES 110 MG/DL (20-135); eGFR 80 ML/MIN
[2021-07-01 14:29] LABS: THIIODOTHRONINE, FREE, SERUM 3.7 pg/mL (2.0-4.4); THYROXINE (T4) 6.1 ug/dL (4.5-12.0); TRIIODOTHYRONINE (T3) 125 ng/dL (71-180)
[2021-07-02 16:24] LABS: MICROALB/CRT, RATIO <5 mg/g creat (0-29)
== END 2021-06-30 23:59 | disposition home or self-care (01) ==
LOC: LAB 08:27
PROVIDERS: ATTEND Dietitian, Registered
DX: E11.9 Type 2 diabetes mellitus without complications (principal); E03.9 Hypothyroidism, unspecified; E55.9 Vitamin D deficiency, unspecified; E78.2 Mixed hyperlipidemia
CPT/HCPCS: 36415; 80053; 80061; 82043; 82306; 82570; 83036; 84436; 84439; 84443; 84480; 84481; 84482; 85025

== ENCOUNTER 2021-08-10 06:51 | Outpatient (CLI) | payer BC | END 2021-08-10 23:59 | disposition home or self-care (01) | LOC: RAD 06:51 | PROVIDERS: ATTEND Family Medicine | DX: R14.2 Eructation (principal); R10.9 Unspecified abdominal pain; K21.9 Gastro-esophageal reflux disease without esophagitis | CPT/HCPCS: 76700 ==

== ENCOUNTER 2021-10-27 08:40 | Outpatient (CLI) | payer BC ==
[~2021-10-27 08:40] MED LIST changes: -FLUC100T8 PO; +[UNRECOGNIZED DRUG - CODE] PO
[2021-10-27 09:25] LABS: HEMOGLOBIN A1C 7.3 % (4.5-6.2)
[2021-10-27 10:08] LABS: ALANINE AMINOTRANSFERASE 28 U/L (12-78); ALBUMIN 3.4 G/DL (3.4-5.0); ALBUMIN/GLOBULIN RATIO 1.1 (1.1-1.5); ALKALINE PHOSPHATASE 88 IU/L (46-116); ANION GAP 9 (8-16); ASPARTATE AMINO TRANSFERASE 18 U/L (10-37); BILIRUBIN,TOTAL 0.3 MG/DL (0.1-1.0); BLOOD UREA NITROGEN 13 MG/DL (7-18); BUN/CREATININE RATIO 22.8 (6.6-38.0); CALCIUM 8.3 MG/DL (8.5-10.1); CHLORIDE 107 MMOL/L (99-107); CHOL/HDL RATIO 2.8 (0.00-4.99); CHOLESTEROL 147 MG/DL (0-200); CREATININE 0.57 MG/DL (0.40-0.90); GLUCOSE 131 MG/DL (70-104); HDL CHOLESTEROL 53 MG/DL (35-60); LDL CHOLESTEROL 71 MG/DL (50-100); SODIUM 144 MMOL/L (135-145); TOTAL PROTEIN 6.4 G/DL (6.4-8.2); TRIGLYCERIDES 57 MG/DL (20-135); eGFR > 90 ML/MIN
[2021-10-28 14:20] LABS: C-PEPTIDE, SERUM 1.5 ng/mL (1.1-4.4)
== END 2021-10-27 23:59 | disposition home or self-care (01) ==
LOC: LAB 08:40
PROVIDERS: ATTEND Dietitian, Registered
DX: E55.9 Vitamin D deficiency, unspecified (principal); E11.9 Type 2 diabetes mellitus without complications; E03.9 Hypothyroidism, unspecified; E78.2 Mixed hyperlipidemia
CPT/HCPCS: 36415; 80053; 80061; 82043; 82306; 82570; 83036; 84439; 84443; 84482; 84681

== ENCOUNTER 2022-06-07 07:53 | Outpatient (CLI) | payer BC ==
[2022-06-07 08:50] LABS: ALANINE AMINOTRANSFERASE 26 U/L (12-78); ALBUMIN 3.9 G/DL (3.4-5.0); ALBUMIN/GLOBULIN RATIO 1.1 (1.1-1.5); ALKALINE PHOSPHATASE 105 IU/L (46-116); ANION GAP 8 (8-16); ASPARTATE AMINO TRANSFERASE 18 U/L (10-37); BILIRUBIN,TOTAL 0.4 MG/DL (0.1-1.0); BLOOD UREA NITROGEN 24 MG/DL (7-18); BUN/CREATININE RATIO 35.3 (6.6-38.0); CHLORIDE 103 MMOL/L (99-107); CHOL/HDL RATIO 3.9 (0.00-4.99); CHOLESTEROL 258 MG/DL (0-200); CREATININE 0.68 MG/DL (0.40-0.90); GLUCOSE 163 MG/DL (70-104); HDL CHOLESTEROL 66 MG/DL (35-60); LDL CHOLESTEROL 153 MG/DL (50-100); POTASSIUM 4.5 MMOL/L (3.5-5.1); SODIUM 140 MMOL/L (135-145); TOTAL CARBON DIOXIDE 29.1 MMOL/L (24-32); TOTAL PROTEIN 7.6 G/DL (6.4-8.2); TRIGLYCERIDES 106 MG/DL (20-135); eGFR 88 ML/MIN
[2022-06-07 08:53] LABS: HEMOGLOBIN A1C 7.5 % (4.5-6.2)
[2022-06-08 10:55] LABS: THIIODOTHRONINE, FREE, SERUM 3.1 pg/mL (2.0-4.4)
== END 2022-06-07 23:59 | disposition home or self-care (01) ==
LOC: LAB 07:53
PROVIDERS: ATTEND Family Medicine
DX: E11.8 Type 2 diabetes mellitus with unspecified complications (principal); E78.2 Mixed hyperlipidemia; E03.9 Hypothyroidism, unspecified; E55.9 Vitamin D deficiency, unspecified
CPT/HCPCS: 36415; 80053; 80061; 82043; 82306; 82570; 83036; 84439; 84443; 84481

== ENCOUNTER 2022-06-21 09:33 | Day surgery (SDC) | payer BC ==
[~2022-06-21] VITALS: Ht 154.9 cm; Wt 59.0 kg
[~2022-06-21 09:33] MED LIST changes: +PEG 3350/Na sulf,bicarb,Cl/KCl oral sol 4 liter bottle PO ONE
[2022-06-21 09:40] VITALS: BP 125/103
[2022-06-21] MEDS ORDERED: MIDAZolam 1 MG/ML 5ML VIAL ONE (09:45)
[2022-06-21] MEDS ORDERED: fentaNYL/PF 50MCG/1 ML 2ML syringe ONE (09:45)
[2022-06-21] MEDS ORDERED: LIDOcaine Viscous 15ml cup ONE (09:46)
[2022-06-21] MEDS ORDERED: SEMA14TA2 PO (09:46)
[2022-06-21] MEDS ORDERED: ASPI-611 PO (09:47)
[2022-06-21] MEDS ORDERED: DOCU-148 PO (09:48)
[2022-06-21] MEDS ORDERED: CHRM1TAB PO (09:51)
[2022-06-21] MEDS ORDERED: potassium PO (09:51)
[2022-06-21] MEDS ORDERED: MULT-1085 PO (09:52)
[2022-06-21] MEDS ORDERED: CYAN50003 PO (09:52)
[2022-06-21] MEDS ORDERED: UBID100C16 PO (09:53)
[2022-06-21] MEDS ORDERED: CETI10TA19 PO (09:54)
[2022-06-21] MEDS ORDERED: HUM7525 SQ (09:56)
[2022-06-21] MEDS ORDERED: INSU300I SQ (09:57)
[2022-06-21 12:12] VITALS: BP 110/55
[2022-06-21 12:22] VITALS: BP 100/50
[2022-06-21 12:32] VITALS: BP 101/50
== END 2022-06-21 12:50 | disposition home or self-care (01) ==
LOC: GI LAB 09:33
PROVIDERS: ATTEND Internal Medicine Gastroenterology
DX: Z12.11 Encounter for screening for malignant neoplasm of colon (principal); K57.30 Diverticulosis of large intestine without perforation or abscess without bleeding; R12 Heartburn; R14.2 Eructation; Z79.899 Other long term (current) drug therapy; Z98.890 Other specified postprocedural states
CPT/HCPCS: 43239; 45378; 99152; 99153; J2250; J3010; J7030; Z7512; A4620

== ENCOUNTER → 2022-10-08 | Outpatient (CLI) | payer BC ==
[~2022-10-08] MED LIST changes: +ASPI-611 PO; +CETI10TA19 PO; +CHRM1TAB PO; +CYAN50003 PO; +DOCU-148 PO; +HUM7525 SQ; -INSU100C10 SQ; +INSU300I SQ; -METF-900 PO; +MULT-1085 PO; -NEUPHOSK PO; -PEG 3350/Na sulf,bicarb,Cl/KCl oral sol 4 liter bottle PO ONE; +SEMA14TA2 PO; +UBID100C16 PO; -[UNRECOGNIZED DRUG - CODE] PO; +potassium PO
[2022-10-08 08:40] LABS: HEMOGLOBIN A1C 6.8 % (4.5-6.2)
[2022-10-08 08:46] LABS: ALANINE AMINOTRANSFERASE 31 U/L (12-78); ALBUMIN 3.6 G/DL (3.4-5.0); ALBUMIN/GLOBULIN RATIO 0.9 (1.1-1.5); ALKALINE PHOSPHATASE 100 IU/L (46-116); ANION GAP 7 (8-16); ASPARTATE AMINO TRANSFERASE 22 U/L (10-37); BILIRUBIN,TOTAL 0.3 MG/DL (0.1-1.0); BLOOD UREA NITROGEN 30 MG/DL (7-18); BUN/CREATININE RATIO 38.5 (6.6-38.0); CALCIUM 8.4 MG/DL (8.5-10.1); CHLORIDE 104 MMOL/L (99-107); CHOL/HDL RATIO 3.2 (0.00-4.99); CHOLESTEROL 180 MG/DL (0-200); CREATININE 0.78 MG/DL (0.40-0.90); GLUCOSE 133 MG/DL (70-104); HDL CHOLESTEROL 57 MG/DL (35-60); LDL CHOLESTEROL 97 MG/DL (50-100); POTASSIUM 4.5 MMOL/L (3.5-5.1); SODIUM 142 MMOL/L (135-145); TOTAL CARBON DIOXIDE 31.4 MMOL/L (24-32); TOTAL PROTEIN 7.4 G/DL (6.4-8.2); TRIGLYCERIDES 102 MG/DL (20-135); eGFR 75 ML/MIN
== END | disposition home or self-care (01) ==
LOC: LAB 07:31
PROVIDERS: ATTEND Dietitian, Registered
DX: E11.8 Type 2 diabetes mellitus with unspecified complications (principal); E03.9 Hypothyroidism, unspecified; E78.2 Mixed hyperlipidemia
CPT/HCPCS: 36415; 80053; 80061; 82043; 82570; 83036; 84439; 84443; 84481

== ENCOUNTER 2023-01-29 07:55 | Outpatient (CLI) | payer BC ==
[2023-01-29 08:50] LABS: ALANINE AMINOTRANSFERASE 34 U/L (12-78); ALBUMIN 3.5 G/DL (3.4-5.0); ALBUMIN/GLOBULIN RATIO 0.9 (1.1-1.5); ALKALINE PHOSPHATASE 100 IU/L (46-116); ANION GAP 8 (8-16); ASPARTATE AMINO TRANSFERASE 26 U/L (10-37); BILIRUBIN,TOTAL 0.3 MG/DL (0.1-1.0); BLOOD UREA NITROGEN 19 MG/DL (7-18); BUN/CREATININE RATIO 31.1 (10.0-20.0); CHLORIDE 104 MMOL/L (99-107); CREATININE 0.61 MG/DL (0.40-0.90); GLUCOSE 153 MG/DL (70-104); POTASSIUM 3.8 MMOL/L (3.5-5.1); SODIUM 140 MMOL/L (135-145); TOTAL CARBON DIOXIDE 27.9 MMOL/L (24-32); TOTAL PROTEIN 7.4 G/DL (6.4-8.2); eGFR > 90 ML/MIN
[2023-01-29 08:55] LABS: HEMOGLOBIN A1C 6.7 % (4.5-6.2)
[2023-01-29 08:59] LABS: CHOL/HDL RATIO 2.8 (0.00-4.99); CHOLESTEROL 160 MG/DL (0-200); HDL CHOLESTEROL 57 MG/DL (35-60); LDL CHOLESTEROL 83 MG/DL (50-100); PHOSPHORUS 3.9 MG/DL (2.3-4.5); TRIGLYCERIDES 80 MG/DL (20-135)
[2023-01-29 09:06] LABS: BILIRUBIN,DIRECT 0.1 MG/DL (0-0.3)
[2023-01-30 13:28] LABS: THYROXINE (T4) 6.5 ug/dL (4.5-12.0)
== END 2023-01-29 23:59 | disposition home or self-care (01) ==
LOC: LAB 07:55
PROVIDERS: ATTEND Dietitian, Registered
DX: E11.8 Type 2 diabetes mellitus with unspecified complications (principal); E78.2 Mixed hyperlipidemia; E03.9 Hypothyroidism, unspecified
CPT/HCPCS: 36415; 80061; 80069; 80076; 82043; 82570; 83036; 84436; 84443; 84480

== ENCOUNTER 2023-04-25 06:42 | Outpatient (CLI) | payer BC ==
[~2023-04-25 06:42] MED LIST changes: -CYAN50003 PO; +CYAN50007 PO
[2023-04-25 08:35] LABS: ANION GAP 6 (8-16); BLOOD UREA NITROGEN 22 MG/DL (7-18); BUN/CREATININE RATIO 26.5 (10.0-20.0); CALCIUM 8.8 MG/DL (8.5-10.1); CHLORIDE 104 MMOL/L (99-107); CREATININE 0.83 MG/DL (0.40-0.90); GLUCOSE 109 MG/DL (70-104); PHOSPHORUS 3.7 MG/DL (2.3-4.5); POTASSIUM 3.7 MMOL/L (3.5-5.1); SODIUM 140 MMOL/L (135-145); TOTAL CARBON DIOXIDE 29.8 MMOL/L (24-32); eGFR 69 ML/MIN
[2023-04-26 08:53] LABS: THIIODOTHRONINE, FREE, SERUM 2.8 pg/mL (2.0-4.4)
[2023-04-26 15:30] LABS: INSULIN 2.5 uIU/mL (2.6-24.9)
[2023-04-30 19:56] LABS: GAD-65 AUTOANTIBODY <5.0 U/mL (0.0-5.0)
== END 2023-04-25 23:59 | disposition home or self-care (01) ==
LOC: LAB 06:42
PROVIDERS: ATTEND Dietitian, Registered
DX: E11.8 Type 2 diabetes mellitus with unspecified complications (principal); E03.9 Hypothyroidism, unspecified; E78.2 Mixed hyperlipidemia
CPT/HCPCS: 36415; 80069; 83525; 84443; 84481; 84681

== ENCOUNTER 2023-09-16 07:16 | Outpatient (CLI) | payer BC ==
[2023-09-16 07:55] LABS: BASOPHILS % (AUTO) 0.7 % (0-1); EOSINOPHILS # (AUTO) 0.6 X10'3 (0-0.9); EOSINOPHILS % (AUTO) 10.4 % (0-6); HEMATOCRIT 36.7 % (35.0-45.0); LYMPHOCYTES # (AUTO) 2.2 X10'3 (1.1-4.8); LYMPHOCYTES % (AUTO) 36.8 % (21-51); MEAN CORPUSCULAR HGB CONC 32.6 g/dL (33.0-36.5); MEAN CORPUSCULAR VOLUME 92.2 FL (78-98); MEAN PLATELET VOLUME 8.3 FL (7.4-10.4); MONOCYTES # (AUTO) 0.5 X10'3 (0-0.9); MONOCYTES % (AUTO) 9.1 % (2-12); NEUTROPHILS # (AUTO) 2.6 X10'3 (1.8-7.7); PLATELET COUNT 208 X10'3 (140-440); RED BLOOD COUNT 3.98 X10'6 (4.20-5.60); RED CELL DISTRIBUTION WIDTH 14.6 % (11.5-14.5); WHITE BLOOD COUNT 5.9 X10'3 (4.5-11.0)
[2023-09-16 08:14] LABS: HEMOGLOBIN A1C 6.6 % (4.5-6.2)
[2023-09-16 08:55] LABS: ALANINE AMINOTRANSFERASE 21 U/L (12-78); ALBUMIN 3.3 G/DL (3.4-5.0); ALBUMIN/GLOBULIN RATIO 0.8 (1.1-1.5); ALKALINE PHOSPHATASE 110 IU/L (46-116); ANION GAP 10 (8-16); ASPARTATE AMINO TRANSFERASE 19 U/L (10-37); BILIRUBIN,DIRECT 0.1 MG/DL (0-0.3); BILIRUBIN,TOTAL 0.3 MG/DL (0.1-1.0); BLOOD UREA NITROGEN 16 MG/DL (7-18); BUN/CREATININE RATIO 23.9 (10.0-20.0); CALCIUM 8.2 MG/DL (8.5-10.1); CHLORIDE 104 MMOL/L (99-107); CHOL/HDL RATIO 2.6 (0.00-4.99); CHOLESTEROL 152 MG/DL (0-200); CREATININE 0.67 MG/DL (0.40-0.90); FREE T4 (FREE THYROXINE) 0.97 NG/DL (0.73-1.40); GLUCOSE 127 MG/DL (70-104); HDL CHOLESTEROL 59 MG/DL (35-60); LDL CHOLESTEROL 72 MG/DL (50-100); PHOSPHORUS 3.2 MG/DL (2.3-4.5); POTASSIUM 3.6 MMOL/L (3.5-5.1); SODIUM 142 MMOL/L (135-145); THYROID STIMULATING HORMONE 4.58 ulU/ml (0.34-4.50); TOTAL CARBON DIOXIDE 27.9 MMOL/L (24-32); TOTAL PROTEIN 7.3 G/DL (6.4-8.2); TRIGLYCERIDES 51 MG/DL (20-135); eGFR 89 ML/MIN
[2023-09-17 09:51] LABS: THIIODOTHRONINE, FREE, SERUM 2.8 pg/mL (2.0-4.4)
[2023-09-17 15:18] LABS: VITAMIN D, 25-HYDROXY 17.9 ng/mL (30.0-100.0)
== END 2023-09-16 23:59 | disposition home or self-care (01) ==
LOC: LAB 07:16
PROVIDERS: ATTEND Dietitian, Registered
DX: E11.8 Type 2 diabetes mellitus with unspecified complications (principal); E78.2 Mixed hyperlipidemia; E03.9 Hypothyroidism, unspecified; E55.9 Vitamin D deficiency, unspecified
CPT/HCPCS: 36415; 80061; 80069; 80076; 82043; 82306; 83036; 84439; 84443; 84481; 85025

== ENCOUNTER 2024-04-13 07:07 | Outpatient (CLI) | payer BC ==
[2024-04-13 08:18] LABS: HEMOGLOBIN A1C 6.9 % (4.5-6.2)
[2024-04-13 08:23] LABS: ALANINE AMINOTRANSFERASE 30 U/L (12-78); ALBUMIN 3.4 G/DL (3.4-5.0); ALBUMIN/GLOBULIN RATIO 0.8 (1.1-1.5); ALKALINE PHOSPHATASE 117 IU/L (46-116); ANION GAP 9 (8-16); ASPARTATE AMINO TRANSFERASE 17 U/L (10-37); BILIRUBIN,DIRECT 0.1 MG/DL (0-0.3); BILIRUBIN,TOTAL 0.3 MG/DL (0.1-1.0); BLOOD UREA NITROGEN 16 MG/DL (7-18); BUN/CREATININE RATIO 21.3 (10.0-20.0); CALCIUM 8.7 MG/DL (8.5-10.1); CHLORIDE 106 MMOL/L (99-107); CHOLESTEROL 156 MG/DL (0-200); CREATININE 0.75 MG/DL (0.40-0.90); FREE T4 (FREE THYROXINE) 0.88 NG/DL (0.73-1.40); GLUCOSE 129 MG/DL (70-104); HDL CHOLESTEROL 52 MG/DL (35-60); LDL CHOLESTEROL 84 MG/DL (50-100); PHOSPHORUS 3.5 MG/DL (2.3-4.5); SODIUM 141 MMOL/L (135-145); TOTAL CARBON DIOXIDE 25.8 MMOL/L (24-32); TOTAL PROTEIN 7.6 G/DL (6.4-8.2); TRIGLYCERIDES 116 MG/DL (20-135); eGFR 78 ML/MIN
[2024-04-14 14:21] LABS: THIIODOTHRONINE, FREE, SERUM 2.6 pg/mL (2.0-4.4); VITAMIN D, 25-HYDROXY 17.2 ng/mL (30.0-100.0)
== END 2024-04-13 23:59 | disposition home or self-care (01) ==
LOC: LAB 07:07
PROVIDERS: ATTEND Dietitian, Registered
DX: E03.9 Hypothyroidism, unspecified (principal); E11.8 Type 2 diabetes mellitus with unspecified complications; E78.2 Mixed hyperlipidemia; E55.9 Vitamin D deficiency, unspecified
CPT/HCPCS: 36415; 80061; 80069; 80076; 82043; 82306; 82570; 83036; 84439; 84443; 84481

== ENCOUNTER 2024-08-31 07:15 | Outpatient (CLI) | payer BC ==
[2024-08-31 08:04] LABS: ALANINE AMINOTRANSFERASE 25 U/L (12-78); ALBUMIN 3.5 G/DL (3.4-5.0); ALBUMIN/GLOBULIN RATIO 0.8 (1.1-1.5); ALKALINE PHOSPHATASE 123 IU/L (46-116); ANION GAP 9 (8-16); ASPARTATE AMINO TRANSFERASE 19 U/L (10-37); BILIRUBIN,TOTAL 0.3 MG/DL (0.1-1.0); BLOOD UREA NITROGEN 19 MG/DL (7-18); BUN/CREATININE RATIO 25.7 (10.0-20.0); CALCIUM 8.5 MG/DL (8.5-10.1); CHLORIDE 103 MMOL/L (99-107); CREATININE 0.74 MG/DL (0.40-0.90); GLUCOSE 136 MG/DL (70-104); POTASSIUM 3.7 MMOL/L (3.5-5.1); SODIUM 140 MMOL/L (135-145); TOTAL CARBON DIOXIDE 28.4 MMOL/L (24-32); TOTAL PROTEIN 7.9 G/DL (6.4-8.2); eGFR 79 ML/MIN
[2024-08-31 08:07] LABS: HEMOGLOBIN A1C 6.7 % (4.5-6.2)
[2024-08-31 08:13] LABS: BILIRUBIN,DIRECT 0.1 MG/DL (0-0.3); CHOL/HDL RATIO 3.7 (0.00-4.99); CHOLESTEROL 198 MG/DL (0-200); HDL CHOLESTEROL 54 MG/DL (35-60); LDL CHOLESTEROL 109 MG/DL (50-100); PHOSPHORUS 3.5 MG/DL (2.3-4.5); THYROID STIMULATING HORMONE 4.29 ulU/ml (0.34-4.50); TRIGLYCERIDES 175 MG/DL (20-135)
[2024-08-31 08:29] LABS: FREE T4 (FREE THYROXINE) 0.84 NG/DL (0.73-1.40)
[2024-09-01 11:12] LABS: THIIODOTHRONINE, FREE, SERUM 2.5 pg/mL (2.0-4.4)
== END 2024-08-31 23:59 | disposition home or self-care (01) ==
LOC: LAB 07:15
PROVIDERS: ATTEND Dietitian, Registered
DX: E11.8 Type 2 diabetes mellitus with unspecified complications (principal); E78.2 Mixed hyperlipidemia; E03.9 Hypothyroidism, unspecified
CPT/HCPCS: 36415; 80061; 80069; 80076; 82306; 83036; 84439; 84443; 84481

== ENCOUNTER 2025-01-11 07:30 | Outpatient (CLI) | payer BC, MEDICARE ==
[2025-01-11 08:29] LABS: ALANINE AMINOTRANSFERASE 45 U/L (12-78); ALBUMIN 3.4 G/DL (3.4-5.0); ALBUMIN/GLOBULIN RATIO 0.9 (1.1-1.5); ALKALINE PHOSPHATASE 117 IU/L (46-116); ANION GAP 5 (8-16); ASPARTATE AMINO TRANSFERASE 26 U/L (10-37); BILIRUBIN,TOTAL 0.3 MG/DL (0.1-1.0); BLOOD UREA NITROGEN 19 MG/DL (7-18); CALCIUM 8.4 MG/DL (8.5-10.1); CHLORIDE 106 MMOL/L (99-107); CREATININE 0.73 MG/DL (0.40-0.90); GLUCOSE 188 MG/DL (70-104); POTASSIUM 4.1 MMOL/L (3.5-5.1); SODIUM 139 MMOL/L (135-145); TOTAL CARBON DIOXIDE 27.9 MMOL/L (24-32); TOTAL PROTEIN 7.2 G/DL (6.4-8.2); eGFR 80 ML/MIN
[2025-01-11 08:39] LABS: BILIRUBIN,DIRECT 0.1 MG/DL (0-0.3); CHOL/HDL RATIO 2.7 (0.00-4.99); CHOLESTEROL 186 MG/DL (0-200); FREE T4 (FREE THYROXINE) 0.89 NG/DL (0.73-1.40); HDL CHOLESTEROL 69 MG/DL (35-60); LDL CHOLESTEROL 98 MG/DL (50-100); PHOSPHORUS 3.2 MG/DL (2.3-4.5); THYROID STIMULATING HORMONE 1.07 ulU/ml (0.34-4.50); TRIGLYCERIDES 112 MG/DL (20-135)
[2025-01-11 09:40] LABS: HEMOGLOBIN A1C 7.2 % (4.5-6.2)
[2025-01-12 08:12] LABS: THIIODOTHRONINE, FREE, SERUM 2.4 pg/mL (2.0-4.4)
[2025-01-12 11:16] LABS: VITAMIN D, 25-HYDROXY 26.4 ng/mL (30.0-100.0)
[2025-01-12 15:10] LABS: CREATININE, URINE 58.4 mg/dL (Not Estab.); MICROALB/CRT, RATIO <5 mg/g creat (0-29); MICROALBUMIN,U,RANDOM <3.0 ug/mL (Not Estab.)
== END 2025-01-11 23:59 | disposition home or self-care (01) ==
LOC: LAB 07:30
PROVIDERS: ATTEND Dietitian, Registered
DX: E11.8 Type 2 diabetes mellitus with unspecified complications (principal); E55.9 Vitamin D deficiency, unspecified; E78.2 Mixed hyperlipidemia; E03.9 Hypothyroidism, unspecified
CPT/HCPCS: 36415; 80061; 80069; 80076; 82043; 82306; 82570; 83036; 84439; 84443; 84481

== ENCOUNTER 2025-04-14 07:44 | Outpatient (CLI) | payer BC, MEDICARE ==
[2025-04-14 08:14] LABS: MEAN PLATELET VOLUME 8.1 FL (7.4-10.4); RED CELL DISTRIBUTION WIDTH 14.4 % (11.5-14.5)
[2025-04-14 08:42] LABS: CHOL/HDL RATIO 3.3 (0.00-4.99); CREATININE 1.04 MG/DL (0.40-0.90); LDL CHOLESTEROL 103 MG/DL (50-100); PHOSPHORUS 4.1 MG/DL (2.3-4.5); TOTAL CARBON DIOXIDE 29.0 MMOL/L (24-32); eGFR 53 ML/MIN
[2025-04-15 11:15] LABS: THIIODOTHRONINE, FREE, SERUM 2.4 pg/mL (2.0-4.4)
== END 2025-04-14 23:59 | disposition home or self-care (01) ==
LOC: LAB 07:44
PROVIDERS: ATTEND Dietitian, Registered
DX: E11.8 Type 2 diabetes mellitus with unspecified complications (principal); E78.2 Mixed hyperlipidemia; I10 Essential (primary) hypertension; E03.9 Hypothyroidism, unspecified; E55.9 Vitamin D deficiency, unspecified
CPT/HCPCS: 36415; 80061; 80069; 80076; 82043; 82306; 82570; 83036; 84439; 84443; 84481; 85025

== ENCOUNTER 2025-04-23 07:56 | Outpatient (CLI) | payer BC, MEDICARE ==
[2025-04-23 15:44] LABS: LEUKOCYTE ESTERASE ,URINE NEGATIVE (Neg); NITRITES, URINE NEGATIVE (Neg); OCCULT BLOOD,URINE NEGATIVE (Neg)
[2025-04-23 15:57] LABS: UA COLLECTION TYPE NON-SPECIFIED
== END 2025-04-23 23:59 | disposition home or self-care (01) ==
LOC: LAB 07:56
PROVIDERS: ATTEND Dietitian, Registered
DX: R80.9 Proteinuria, unspecified (principal); R30.0 Dysuria
CPT/HCPCS: 81003

== ENCOUNTER 2025-07-13 07:26 | Outpatient (CLI) | payer BC, MEDICARE ==
[2025-07-13 07:54] LABS: MEAN PLATELET VOLUME 8.3 FL (7.4-10.4); RED CELL DISTRIBUTION WIDTH 14.7 % (11.5-14.5)
[2025-07-13 08:19] LABS: CHOL/HDL RATIO 3.4 (0.00-4.99); CREATININE 0.76 MG/DL (0.40-0.90); LDL CHOLESTEROL 99 MG/DL (50-100); PHOSPHORUS 3.4 MG/DL (2.3-4.5); TOTAL CARBON DIOXIDE 29.4 MMOL/L (24-32); eGFR 76 ML/MIN
== END 2025-07-13 23:59 | disposition home or self-care (01) ==
LOC: LAB 07:26
PROVIDERS: ATTEND Dietitian, Registered
DX: I10 Essential (primary) hypertension (principal); E78.2 Mixed hyperlipidemia; E03.9 Hypothyroidism, unspecified
CPT/HCPCS: 36415; 80061; 80069; 80076; 83036; 84439; 84443; 84481; 85025